=== PATIENT | male | born 1975 | race Caucasian/White ===

== ENCOUNTER 2019-07-27 05:35 | Day surgery (SDC) | payer BC ==
[2019-07-27] MEDS ORDERED: HYDROMORPHONE INJ 2 MG/ML DISP.SYRIN ONE (08:40)
[2019-07-27] MEDS ORDERED: methylPREDNISolone ACETATE 80 MG/ML VIAL ONE (09:06)
[2019-07-27] MEDS ORDERED: LIDOCAINE HCL/MPF 1% 30 ML VIAL IJ ONE (09:07)
[2019-07-27] MEDS ORDERED: HYDROMORPHONE 1 MG/1 ML DISP.SYRIN ONE (09:30)
[2019-07-27] MEDS ORDERED: HYDROCODONE/APAP 5/325MG 1 EACH TABLET PO PRN (10:00)
== END 2019-07-27 11:42 | disposition home or self-care (01) ==
DX: S83.212A Bucket-handle tear of medial meniscus, current injury, left knee, initial encounter (principal); X58.XXXA Exposure to other specified factors, initial encounter; Y93.89 Activity, other specified; Y92.89 Other specified places as the place of occurrence of the external cause; Y99.8 Other external cause status
CPT/HCPCS: 29881; 36415; 86850; 87081; 97116; 97161; 97530; A4217; J0690; J1040; J1100; J1170 ×2; J1885; J2405; J2704; J3490 ×2